=== PATIENT | female | born 1985 | race Two or more races ===

== ENCOUNTER 2016-11-24 11:16 | Emergency (ER) | payer OTHER ==
--- NOTE | ~2016-11-24 | CR229 ---
[facility] A Service of [facility] & [facility] RADIOLOGY TEXT RESULTS PATIENT: ANDREA HERNÁNDEZ LOCATION: CFTX : 87 UNIT #: [id number] AGE: [address]: Tisha Toro SEX: F ORDER DR: [id number] [facility] [address] [place], [place] [address] [id number] MR#: [id number] #: [id number] NAME: ANDREA HERNÁNDEZ : 1985 SEX: F STUDY DATE/TIME: 11/24/2016 11:49 UNIT: [facility] ROOM: STUDY DESCRIPTION: CR Shoulder Min 2 View Lt Attending Physician: Tisha Toro P.A.-C. Ordering Physician: Tisha Toro P.A.-C. Primary Care Physician: No Primary Care Physician MEDICAL IMAGING REPORT This report is preliminary unless electronic signature is present EXAM Left shoulder 3 views HISTORY Fell on ground 3 days ago. Shoulder pain. COMPARISON Left shoulder films 12/18/2013 FINDINGS 3-views of left shoulder demonstrates no fracture dislocation or arthritic inflammatory change. Soft tissues and visualized left thorax appear normal. IMPRESSION Normal left shoulder Dictated by... Curtis Canales M.D. THIS IS AN ELECTRONICALLY VERIFIED REPORT Curtis Canales M.D. at 11/24/2016 3:32 PM ELAINA/gio TD: 11/24/2016 13:13 JOB #: [id number] MEDICAL IMAGING REPORT Page 1 of 1 COPY
[~2016-11-24 11:16] MED LIST: AMITRYPTYLINE PO; AZITHROMYCIN1 GM PO; CIPRO PO; DIFLUCAN PO; MAGIC MOUTHWASH MT; PYRIDIUM PO
== END 2016-11-24 12:25 | disposition home or self-care (01) ==
LOC: CED 11:16 → CFTX 11:16
DX: S46.012A Strain of muscle(s) and tendon(s) of the rotator cuff of left shoulder, initial encounter (principal); Z88.0 Allergy status to penicillin; W19.XXXA Unspecified fall, initial encounter; Y93.89 Activity, other specified; Y92.69 Other specified industrial and construction area as the place of occurrence of the external cause; Y99.0 Civilian activity done for income or pay
CPT/HCPCS: 73030; 99283

== ENCOUNTER 2017-01-28 12:15 | Emergency (ER) | payer OTHER ==
[2017-01-28 12:50] LABS: URINE SOURCE CLEAN CATCH
[2017-01-28 12:54] LABS: URINE APPEARANCE CLEAR; URINE BILIRUBIN NEG (NEG); URINE BLOOD NEG (NEG); URINE COLOR YELLOW; URINE GLUCOSE NEG (NEG); URINE KETONE NEG (NEG); URINE LEUKOCYTE ESTERASE NEG (NEG); URINE NITRATE NEG (NEG); URINE PROTEIN NEG (NEG); URINE SPECIFIC GRAVITY 1.017 (1.003-1.035); URINE UROBILINOGEN 0.2 MG/DL (NEG)
[2017-01-28 12:57] LABS: CULTURE INDICATED? NO
[2017-02-02 11:58] LABS: CHLAMYDIA TRACH Not Detected (Not Detected); N GONOR Not Detected (Not Detected)
== END 2017-01-28 14:05 | disposition home or self-care (01) ==
LOC: CED 12:15 → CFTX 12:15
PROVIDERS: Physician Assistant
DX: N95.2 Postmenopausal atrophic vaginitis (principal); Z88.0 Allergy status to penicillin
CPT/HCPCS: 81003; 84703; 87491; 87591; 87808; 87905; 99283